=== PATIENT | male | born 1990 | race Hispanic/Latino ===

== ENCOUNTER 2021-04-08 14:01 | Emergency (ER) | payer SELFPAY ==
[2021-04-08 16:31] LABS: Protime INR 1.03
[2021-04-08 16:38] LABS: BUN Blood Urea Nitrogen 8 mg/dL (7-18); Bicarbonate 24 mmol/L (21-32); Glucose Level 120 mg/dL (74-106); Potassium 3.7 mmol/L (3.5-5.1); Sodium Level 140 mmol/L (136-145)
[2021-04-08 16:42] LABS: Absolute Lymphocytes (CBC) 2.1 K/uL (0.7-4.9); Basophils % 0.4 % (0-1.3); Hematocrit 44.5 % (39.6-49.0); Lymphocytes % 16.9 % (15.3-44.8); MPV 7.3 fL (7.6-11.3); RBC Red Blood Cell Count 4.62 M/uL (4.33-5.43)
[2021-04-08] MEDS ORDERED: FENTANYL CITR 100 MCG/2 ML ONE (16:57)
[2021-04-08] MEDS ORDERED: NA CHLORIDE 0.9% 1,000 ML ONE (16:57)
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
[2021-04-08] MEDS ORDERED: FLUORESCEIN SODIUM 1 MG/WRAP ONE (17:42)
[2021-04-08] MEDS ORDERED: TETRACAINE HCL 0.5% 4ML OPTH ONE (17:43)
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
[2021-04-08] MEDS ORDERED: ACETAMINOPHEN 500 MG TAB ONE (17:50)
[2021-04-08 18:16] VITALS: BP 149/87; TEMP 98.6; O2SAT 99
== END 2021-04-08 17:57 | disposition home or self-care (01) ==
LOC: ER 14:01
DX: S06.0X9A Concussion with loss of consciousness of unspecified duration, initial encounter (principal); R07.9 Chest pain, unspecified; R10.9 Unspecified abdominal pain; F17.210 Nicotine dependence, cigarettes, uncomplicated; Y04.2XXA Assault by strike against or bumped into by another person, initial encounter; Y92.89 Other specified places as the place of occurrence of the external cause
CPT/HCPCS: 36415; 70450; 70486; 71260; 72125; 74177; 76377; 80048; 82565; 85025; 85610; 86850; 86900; 86901; 96361; 96374; 99284; J3010; J7030; Q9967